=== PATIENT | female | born 1995 | race American Indian/Alaskan Native ===

== ENCOUNTER 2019-05-17 20:48 | Outpatient (CLI) | payer OTHER ==
[2019-05-17] MEDS ORDERED: LACTATED RINGERS 1,000 ML IV ONE (21:34)
[2019-05-17 22:58] LABS: Hemoglobin 12.2 gm/dl (10.1-14.3); Mean Corpuscular HGB Conc 36 % (30-34); Mean Corpuscular Volume 95 fl (79-97); Platelet Count 303 K/mm3 (140-440); Red Blood Count 3.59 M/mm3 (3.65-5.03); Red Cell Distribution Width 13.5 % (13.2-15.2)
[2019-05-18 00:37] VITALS: BP 108/61
--- NOTE | 2019-05-18 01:28 | Ultrasound Report ---
US OB >= 14 weeks Fetus/transabdominal OB pelvic ultrasound INDICATION / CLINICAL INFORMATION: Vaginal bleeding. Rule out abruption. COMPARISON: None available. FINDINGS: There is a single intrauterine with an estimated sonographic gestational age of 22 weeks an d an EDC of 09/20/2019. Clinical dates are 22 weeks 2 days. The heart rate is 147 bpm. pr esentation is transverse with the head on the maternal right. Amniotic fluid volume is normal w ith the deepest pocket measuring 4.5 cm. The placenta is located posteriorly on the left, is grade 0 and is free of the os. The uterine cervix measures 4.5 cm in length and the internal os is closed. Ne ither ovary is seen. The intracranial and spinal anatomy are normal. A 4 chambered heart view is seen. The sto mach, diaphragm, kidneys and urinary bladder are normal. There is a three-vessel umbilical cord which inserts normally on the abdomen. No anomalies are seen. IMPRESSION: Single viable 22 week intrauterine without complication. There is no evidence o f placenta previa or abruption. Signer Name: Virgilio Guerrero MD Signed: 05/18/2019 1:24 AM Workstation Name: [id number]
== END 2019-05-18 01:26 | disposition home or self-care (01) ==
LOC: TRG 20:48
PROVIDERS: ATTEND Obstetrics & Gynecology
DX: O26.852 Spotting complicating pregnancy, second trimester (principal); O36.8120 Decreased fetal movements, second trimester, not applicable or unspecified; O26.892 Other specified pregnancy related conditions, second trimester; M54.9 Dorsalgia, unspecified; R10.9 Unspecified abdominal pain; Z3A.22 22 weeks gestation of pregnancy
CPT/HCPCS: 36415; 76805; 85027; J7120